=== PATIENT | male | born 1955 | race Caucasian/White ===

== ENCOUNTER 2021-01-22 10:04 | Outpatient (CLI) | payer MEDICARE, SELFPAY ==
[2021-01-22 13:11] LABS: Alanine Aminotransferase 72 U/L (4-50); Albumin Level 4.5 g/dL (3.5-5.1); Alkaline Phosphatase 57 U/L (38-126); Anion Gap 10 mmol/L (8-16); Aspartate Amino Transferase 70 U/L (17-59); Bilirubin,Total 0.6 mg/dL (0.2-1.3); Blood Urea Nitrogen 17 mg/dL (9-20); Calcium 9.5 mg/dL (8.4-10.2); Carbon Dioxide 25 mmol/L (22-30); Chloride 100 mmol/L (98-107); Cholesterol 198 mg/dL (0-200); Estimated Glomerular Filt Rate > 60; Glucose 160 mg/dL (75-110); HDL Direct 62 mg/dL; Potassium 4.5 mmol/L (3.4-5.0); Sodium 135 mmol/L (137-145); Triglycerides 96 mg/dL (<150)
[2021-01-22 13:18] LABS: Hemoglobin A1C 8.2 % (<5.7)
[2021-01-22 13:22] LABS: LDL Cholesterol Direct 99 mg/dL
[2021-01-22 13:34] LABS: Microalbumin Urine Random 6.8 mg/L (0-16.7)
[2021-01-23 13:39] LABS: Hepatitis B Surface Antigen Negative (Negative)
[2021-01-23 13:44] LABS: Hepatitis B Core IgM Result Negative (Negative)
[2021-01-23 13:56] LABS: Hepatitis C Virus Antibody Negative (Negative)
[2021-02-04 15:08] LABS: HAV RESULT NEG (Negative)
== END 2021-01-22 10:05 | disposition home or self-care (01) ==
LOC: ANHWCLAB 10:07
PROVIDERS: PCP Family Medicine; Visit Provider Family Medicine
DX: E11.8 Type 2 diabetes mellitus with unspecified complications (principal); E78.5 Hyperlipidemia, unspecified; I10 Essential (primary) hypertension; E78.2 Mixed hyperlipidemia
CPT/HCPCS: 36415; 80053; 80061; 80074; 82043; 83036

== ENCOUNTER 2025-04-13 08:49 | Outpatient (CLI) | payer MEDICARE, SELFPAY ==
--- NOTE | ~2025-04-13 | US_ITS ---
US arterial ankle brachial ind INDICATION: Diabetes. High cholesterol level. Hypertension. TECHNIQUE: Segmental pressures and plethysmographic and Doppler waveforms of the brachial and lower extremity arteries were obtained. COMPARISON: None. FINDINGS: Right brachial artery pressure cannot be occluded and the left brachial artery pressures 210 mm Hg. The right ankle-brachial index (RICHAR) could not be occluded and the right TBI is 0.82 The left RICHAR could not be occluded. The left TBI is 0.87. IMPRESSION: 1. Limited study. Ankle-brachial indices could not be obtained. Reviewed, dictated and finalized at location O.
--- OUTSIDE RECORDS SUMMARY | 2025-04-13 08:54 | XMS_ITS | Clinical Summary ---
Author Organization [facility] Address [facility] [place] [address] Care Team Providers Care Web Offset Press Feeder Name Role Phone None, Provider Primary Care Provider Unavaila ble Social History Tobacco Use Types Packs/Day Years Used Date Smoking Tobacco: Never Assessed Sex and Gender Information Value Date Recorded Sex Assigned at Not on file Legal Sex Male 7:22 PM CDT Gender Identity Not on file Sexual Orientation Not on file Last Filed Vital Signs Vital Sign Reading Time Taken Comments Blood Pressure 142/74 06/13/2020 7:09 PM [employer] Pulse 72 06/13/2020 7:09 PM [employer] Temperature 37.1 C (98.8 F) 06/13/2020 7:09 PM [employer] Respiratory Rate 18 06/13/2020 7:09 PM [employer] Oxygen Saturation 99% 06/13/2020 7:09 PM [employer] Inhaled Oxygen Concentration - - Weight 84.7 kg (186 lb 11.2 oz) 06/13/2020 5:48 PM [employer] Height 177.8 cm (5' 10) 06/13/2020 5:48 PM [employer] Body Mass Index 26.79 06/13/2020 5:48 PM [employer] Plan of Treatment Health Maintenance Due Date Last Done Comments Colorectal Cancer Screening Colonoscopy (10 Years) 1954 Hepatitis C 1972 DTaP, Tdap and Td Vaccines ( 1 - Tdap) 1973 Pneumococcal Vaccine: 50+ Ye ars (1 of 1 - PCV) 2004 Zoster Vaccines (1 of 2) 2004 Annual Medicare Wellness Visit 11/04/2019 COVID-19 Vaccine ( - 2023-2 5 season) 2025 RSV Immunization or 60+ Years (1 - 1-dose 75+ series) 2029 Meningococcal B Vaccine Aged Out No l onger eligible based on patient's age to complete this topic Meningococcal Vaccine Aged Out No arthur corazon eligible based on patient's age to complete this topic RSV Immunizations Under 20 Months Aged Out No longer eligible based on patient's age to complete this topic Insurance [facility] Care Teams Web Offset Press Feeder Relationship Specialty Start Date End Date None, Provider, PCP - General 06/13/20
== END 2025-04-13 08:50 | disposition home or self-care (01) ==
PROVIDERS: PCP Family Medicine; Visit Provider Student in an Organized Health Care Education/Training Program
DX: R09.89 Other specified symptoms and signs involving the circulatory and respiratory systems (principal)
CPT/HCPCS: 93922